=== PATIENT | female | born 2005 | race Caucasian/White ===

== ENCOUNTER 2025-06-22 09:23 | Outpatient (AMB) | payer BC, SELFPAY ==
--- NOTE | 2025-06-22 09:36 | MHC.PC.OV ---
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 Allergies Seasonal Allergies Allergy (Verified 06/22/25 09:39) Congestion Tobacco use date assessed: 06/22/25 Dental Screening Dental Screen Date: 06/22/25 Did you have a dental visit in the last 12 months?: Yes Did you have a dental problem in the last 6 months where you did not have access to dental care?: No Was dental information given to patient?: Patient has dentist HPI HPI Comments History of Present Illness Details This is a 30-year-old female with a past medical history of depression with anxiety presenting to establish care. She transferred from [facility]. Records transfer pending. Anxiety and depression-diagnosed 4 years ago. She was initially seen by a therapist. She tried a couple of medications before starting venlafaxine which was titrated to 75 mg daily. She has been on it for a couple of years. She would like to try decreasing it because she has been doing well for the past year, and she does not want to take more medicine than she needs. Denies hospitalizations for mental health. She is graduating from [employer] in 2 weeks. 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 She is going to move back to [facility] and take some time off before applying to jobs. She has a prescription for hydroxyzine 10 mg at bedtime as needed, but she has not use this for a long time. Eye and dental exams are up-to-date. She will sign a release so we can review her immunization record. Seasonal allergies are treated with Zyrtec as needed. She is on an oral contraceptive pill. 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 Referred for initial exam. Given contact number to call. ROS: Constitutional: No unexplained weight loss, fever, chills, fatigue or night sweats. Eyes: No vision changes, blurry vision, double vision, eye pain, eye redness, eye discharge. ENT: No hearing loss, sneezing, congestion, runny nose or sore throat. Respiratory: No shortness of breath, cough or sputum production. Cardiovascular: No chest pain, chest pressure or chest discomfort. No palpitations or pedal edema. Gastrointestinal: No anorexia, nausea, vomiting or diarrhea. No abdominal pain or blood in stool. Genitourinary: No dysuria, hematuria, urinary frequency. Neurologic: No headache, dizziness, syncope, unilateral weakness, ataxia, numbness or tingling in the extremities. Musculoskeletal: No muscle pain, back pain, joint pain or swelling. Hematologic/Lymphatics: No bleeding or bruising. No painful lymph nodes. Skin: No rash or itching. Endocrine: No cold or heat intolerance. No polyuria or polydipsia. Psychiatric: No depression or anxiety. No SI/HI. Physical exam: Constitutional: Alert, in no distress. Head: Normocephalic. Eyes: Pupils are equal, round and reactive to light. Extraocular muscles intact. Ear, Nose and Throat: Canals clear. TMs normal. Normal nasal mucosa. No nasal discharge. No oral lesions. Neck: Supple, Full range of motion. No lymphadenopathy. No palpable thyroid masses. Respiratory: Clear to auscultation. Cardiovascular: S1 S2 regular. No murmurs Gastrointestinal: Abdomen soft, non-tender, non-distended. Normal bowel sounds. No palpable masses. Neurologic: No focal neurological deficits. Symmetric patellar reflexes. Moves all extremities spontaneously. Sensation intact bilaterally. Skin: No rashes or lesions. Musculoskeletal: No gross deformities. Normal range of motion. Extremities: Warm and well perfused. No clubbing, cyanosis or edema. 3+ peripheral pulses bilaterally. Psychiatric: Normal mood and affect [facility] Medical History (Updated 06/22/25 @ 10:01 by SAMIA Bryan) Routine physical examination Screening for cardiovascular condition Depression Anxiety Family History (Updated 06/22/25 @ 10:06 by SAMIA Bryan) Mother Hypertension FHx: mental illness Anxiety Depression Father Hyperlipemia Maternal Grandmother Lung cancer Alcohol abuse Paternal Grandmother Breast cancer, Onset Age: 70 Paternal Grandfather Substance abuse Social History (Updated 06/22/25 @ 09:45 by Oralia Zimmer MA) Housing: House Housing Other:: [place] Alcohol intake: current Patient Tobacco Use Status: Never used Tobacco e-Cigarette/Vaping Use: Never Used Second Hand Smoke Exposure: No Use of substances other than those prescribed or required for medical reasons: No service: No Current occupational status: employed and student Current occupation: [employer]. Current occupational exposures/hazards: No Cognitive needs: No Hearing needs: No Vision needs: No Questionnaire PHQ-9 Over the last 2 weeks, how often have you been bothered by any of the following problems? 1. Little interest or pleasure in doing things: not at all 2. Feeling down, depressed, or hopeless: not at all 3. Trouble falling or staying asleep, or sleeping too much: not at all 4. Feeling tired or having little energy: not at all 5. Poor appetite or overeating: not at all 6. Feeling bad about yourself - or that you are a failure or have let yourself or your family down: not at all 7. Trouble concentrating on things, such as reading the newspaper or watching television: not at all 8. Moving or speaking so slowly that other people could have noticed. Or the opposite - being so fidgety or restless that you have been moving around a lot more than usual: not at all 9. Thoughts that you would be better off or of hurting yourself in some way: not at all Total score: 0 Depression Screening Interpretation: Negative Depression Screening Done: Yes 77256 - PHQ-9 Billing: Yes Source: Developed by Drs. Isaias Craven, Donya Tilley, Yong Campbell and colleagues, with an educational erika from [employer]. Thrive Questionnaire Date Thrive assessed: 06/22/25 I am a: Patient What is your living situation today?: I have a steady place to live Within the past 12 months, did the food you bought not last and you didn't have the money to get more?: Never true Within the past 12 months, did you worry whether your food would run out before you got money to buy more?: Never true Do you have trouble paying for medicines?: No Do you have trouble getting transportation to medical appointments?: No Do you have trouble paying your heating and electricity bill?: No Do you have trouble taking care of your child, family member or friend?: No Do you have trouble with day-to-day activities such as bathing, preparing meals, shopping, managing finances, etc.?: No Are you currently unemployed and looking for a job?: No Are you interested in more education?: No Please select the resources that you would like help with: None Currently or been in a relationship where the following occur: No concerns reported THRIVE Score: 0 AUDIT C Alcohol Use Questionnaire (AUDIT-C) 1. How often do you have a drink containing alcohol?: 2-4 times a month 2. How many drinks containing alcohol do you have on a typical day when you are drinking?: 3 or 4 3. How often do you have six or more drinks on one occasion?: Monthly Total Score: 5 NAHUN-7 AMB Questionnaire NAHUN-7 Date NAHUN - 7 assessed: 06/22/25 Feeling nervous, anxious, or on edge: 0 = Not at all Not being able to stop or control worryin = Not at all Worrying too much about different things: 0 = Not at all Trouble relaxin = Not at all Being so restless that it is hard to sit still: 0 = Not at all Becoming easily annoyed or irritable: 0 = Not at all Feeling afraid as if something awful might happen: 0 = Not at all Total NAHUN-7 score (0-4 normal; 5-9 mild; 10-14 moderate; 15-21 severe): 0 Source: Developed by Drs. Isaias Craven, Donya Tilley, Yong Campbell and colleagues, with an educational erika from [employer]. NAHUN-7 Assessment Billing NAHUN-7 Assessment Tool: NAHUN-7 Assessment 39286 Physical exam (Primary Care) Vital Signs: Last Vital Signs Temp 97.8 F 06/22/25 09:46 Pulse 75 06/22/25 09:46 BP 116/72 06/22/25 09:46 Pulse Ox 99 06/22/25 09:46 Oxygen Delivery Method Room Air 06/22/25 09:46 BMI result Body Mass Index 27.3 Tobacco/Smoking Status: Tobacco use Status Tobacco use date assessed 06/22/25 06/22/25 09:50 Patient Tobacco Use Status Never used Tobacco 06/22/25 09:50 e-Cigarette/Vaping Use Never Used 06/22/25 09:50 PHQ-9: PHQ-9 Score PHQ-9: Total score 0 06/22/25 09:54 Depression Screening Interpretation: Negative Thrive Assessment: Date of Thrive Assessment Date Thrive assessed 06/22/25 06/22/25 09:38 Currently or been in a relationship where the following occur: No concerns reported Coding Level of Care Code New Pt Level 3 (75978) New Pt Prev Care 18-39yr(02541 Diagnoses Routine physical examination Z00.00 Anxiety F41.9 Depression F32.A Screening for cardiovascular condition Z13.6 Additional Codes NAHUN-7 Assessment Billing - NAHUN-7 Assessment Tool: NAHUN-7 Assessment 70593 ([id number]) PHQ-9 - 37641 - PHQ-9 Billing: Yes ([id number]) Assessment & Plan Assessment & Plan (1) Routine physical examination: Code(s): Z00.00 - Encounter for general adult medical examination without abnormal findings Category: Medical (2) Anxiety: Code(s): F41.9 - Anxiety disorder, unspecified Category: Medical (3) Depression: Code(s): F32.A - Depression, unspecified Category: Medical (4) Screening for cardiovascular condition: Code(s): Z13.6 - Encounter for screening for cardiovascular disorders Category: Medical Plan Patient is seen today for a routine physical. As part of this visit we reviewed the following issues, which are considered and essential part of preventative health in this age group: - Breast Cancer screening - Annual Car Wash Supervisor exam - Screening for colon cancer - Cholesterol screening - Osteoporosis prevention including calcium/vitamin D intake, weight bearing exercise & smoking cessation - Nutritional and exercise counseling - Counseling of injury prevention including fire prevention, smoke alarms and seat belt usage - Screening for depression - Prevention of and/or testing for infectious diseases - agreeable to screen for gonorrhea and chlamydia by urine. Declined screening for syphilis, HIV and hepatitis-C. - Education about skin cancer - Recommendations about immunizations - Recommendation of an eye exam - Screening for substance abuse The patient will alternate venlafaxine 37.5 mg and 75 mg daily for the next 2 weeks. She will then decrease to 37.5 mg daily. She will monitor for recurrent anxiety and depression symptoms. She will schedule a follow up with me in 6 weeks for reassessment. Orders: Orders Lipid Panel Today F32.A - Depression, unspecified, F41.9 - Anxiety disorder, unspecified, Z00.00 - Encounter for general adult medical examination without abnormal findings, Z13.6 - Encounter for screening for cardiovascular disorders Comprehensive Met. Panel Today F32.A - Depression, unspecified, F41.9 - Anxiety disorder, unspecified, Z00.00 - Encounter for general adult medical examination without abnormal findings, Z13.6 - Encounter for screening for cardiovascular disorders TSH reflex Free T4 Today F32.A - Depression, unspecified, F41.9 - Anxiety disorder, unspecified, Z00.00 - Encounter for general adult medical examination without abnormal findings, Z13.6 - Encounter for screening for cardiovascular disorders Complete Blood Count no Diff Today F32.A - Depression, unspecified, F41.9 - Anxiety disorder, unspecified, Z00.00 - Encounter for general adult medical examination without abnormal findings, Z13.6 - Encounter for screening for cardiovascular disorders CT NG by PCR Urine Today F32.A - Depression, unspecified, F41.9 - Anxiety disorder, unspecified, Z00.00 - Encounter for general adult medical examination without abnormal findings, Z13.6 - Encounter for screening for cardiovascular disorders, Z20.2 - Contact with and (suspected) exposure to infections with a predominantly sexual mode of transmission Referrals TOOL PUSHER Referral Z01.419 - Encounter for gynecological examination (general) (routine) without abnormal findings Medications: New venlafaxine ER 37.5 mg PO DAILY 90 caps 0RF
[2025-06-22 09:46] VITALS: BP 116/72; PULSE 75; TEMP 36.6; O2SAT 99; BMI 27.3
--- OUTSIDE RECORDS SUMMARY | 2025-06-22 10:23 | XMS_ITS ---
Author Name [facility] Organization Unknown History of Medication Use Medication Directions Dispensed Refills Start Date End Date Stat us venlafaxine (EFFEXOR-XR) 75 MG 24 hr capsule Take 1 capsule (75 mg total) by mouth daily 04/07/2024 11/28/2024 active hydrOXYzine (ATARAX) 25 MG tablet Take 1 tablet (25 mg total) by mouth 05/28/2023 active Problems Problem Status Onset Date Problem Type Date of Resolution Source Encounter for female control active [facility]Act [facility] Need for vaccination active EncounterDiagnosisAct [facility] Depression, unspecified depression type active EncounterDiagnosisAct [facility]_ [facility] Immunizations Vaccine Date Source Lot Number Status Fluzone Trivalent Prefilled Syringe (18+ months) 11/28/2024 [facility] [id number] completed Encounters Encounter Type Encounter Reason Primary Diagnosis Location Date Ambulatory Flu Vaccine Encounter for in itial prescription of contraceptives, unspecified [facility] 11/28/2024 Care Team Organization Name Specialty Phone Email Start Date End Da te [facility] NO PCP Primary Care 11/28
--- OUTSIDE RECORDS SUMMARY | 2025-06-22 10:23 | XMS_ITS | Encounter Summary ---
Author Organization [facility] Address [address] [place] [address] Phone Care Team Providers Care Jewel Hole Finish Opener Name Role Phone Eunice Olson MD Primary Care Provider [phone] Encounter Details Date Type Department Care Team (Late st Contact Info) Description 04/14/2018 [facility] [id number] [place] [address] Court Stone MD Social History Tobacco Use Types Packs/Day Years Used Date Smoking Tobacco: Never Assessed Comments Unknown Sex and Gender Information Value Date Recorded Sex Assigned at Not on file Legal Sex Female 6:11 PM EDT Gender Identity Not on file Sexual Orientation Straight 10/10/2019 11 :31 AM EST documented as of this encounter Plan of Treatment Not on file documented as of this encounter Visit Diagnoses Not on filedocumented in this encounter Care Teams Jewel Hole Finish Opener Relationship Specialty Start Date End Date Eunice Olson MD [address] [place] [address] PCP - General Pediatrics 03/05/23 10/14/24 documented as of this encounter
== END 2025-06-22 10:14 | disposition home or self-care (01) ==
LOC: HO.HMCFM 09:33
PROVIDERS: PCP Physician Assistant Medical; Visit Provider Physician Assistant Medical
DX: Z00.00 Encounter for general adult medical examination without abnormal findings (principal); F41.9 Anxiety disorder, unspecified; F32.A Depression, unspecified; Z13.6 Encounter for screening for cardiovascular disorders

== ENCOUNTER → 2025-06-22 09:23 | Outpatient (BNVA) | payer BC, SELFPAY | PROVIDERS: PCP Physician Assistant Medical; Visit Provider Physician Assistant Medical | DX: Z00.00 Encounter for general adult medical examination without abnormal findings (principal); F41.9 Anxiety disorder, unspecified; F32.A Depression, unspecified | CPT/HCPCS: 96127 ==

== ENCOUNTER 2025-06-22 10:29 | Outpatient (REF) | payer BC, SELFPAY ==
[2025-06-22 15:02] LABS: Hematocrit 39.9 % (37.0-47.0); Hemoglobin 13.5 g/dl (12.0-16.0); Mean Corpuscular HGB Conc 33.8 g/dl (31.0-35.0); Mean Corpuscular Hemoglobin 31.8 pg (27.0-33.0); Mean Corpuscular Volume 93.9 fL (80.0-98.0); NRBC Abs Auto 0.000 X10*3/uL (0.0-0.012); NRBC Pct Auto 0.0 /100WBC (0.0-0.2); Platelet Count 281 X10*3/uL (160-400); Red Blood Count 4.25 X10*6/uL (4.20-5.50); White Blood Count 9.5 X10*3/uL (4.8-10.8)
[2025-06-22 15:38] LABS: Alanine Aminotransferase 23 U/L (0-31); Albumin Level 4.5 g/dL (3.5-5.0); Alkaline Phosphatase 69 U/L (39-117); Anion Gap 14 (12-20); Aspartate Amino Transferase 27 U/L (5-31); Blood Urea Nitrogen 11 mg/dL (9-16); Calcium 9.5 mg/dL (8.4-10.2); Carbon Dioxide 26 mmol/L (22-29); Chloride 105 mmol/L (96-108); Cholesterol 230 mg/dL (<200); Estimated Glomerular Filt Rate > 60; HDL Cholesterol 101 mg/dL (>40); Potassium 4.2 mmol/L (3.3-5.1); Sodium 141 mmol/L (135-145); Total Protein 6.9 g/dL (6.5-8.0); Triglycerides 68 mg/dL (<150)
[2025-06-22 17:01] LABS: CT PCR Urine DETECTED (Not Detect.); NG PCR Urine NOT DETECTED (Not Detect.)
== END 2025-06-22 10:30 | disposition home or self-care (01) ==
LOC: HO.WFDLDS 10:29
PROVIDERS: Visit Provider Physician Assistant Medical
DX: Z00.00 Encounter for general adult medical examination without abnormal findings (principal); Z13.6 Encounter for screening for cardiovascular disorders; F41.9 Anxiety disorder, unspecified; F32.A Depression, unspecified; Z20.2 Contact with and (suspected) exposure to infections with a predominantly sexual mode of transmission
CPT/HCPCS: 36415; 80053; 80061; 84443; 85027; 87491; 87591

== ENCOUNTER 2025-08-27 10:03 | Outpatient (REF) | payer BC, SELFPAY ==
[2025-08-27 14:40] LABS: Hematocrit 37.9 % (37.0-47.0); Hemoglobin 12.6 g/dl (12.0-16.0); Mean Corpuscular HGB Conc 33.2 g/dl (31.0-35.0); Mean Corpuscular Hemoglobin 31.1 pg (27.0-33.0); Mean Corpuscular Volume 93.6 fL (80.0-98.0); NRBC Abs Auto 0.000 X10*3/uL (0.0-0.012); NRBC Pct Auto 0.0 /100WBC (0.0-0.2); Platelet Count 267 X10*3/uL (160-400); Red Blood Count 4.05 X10*6/uL (4.20-5.50); White Blood Count 6.3 X10*3/uL (4.8-10.8)
[2025-08-27 15:22] LABS: Iron 73 mcg/dL (30-160); Percent Iron Saturation 20 % (15-50); Total Iron Binding Capacity 357 mcg/dL (228-428); Unsaturated Iron Binding 284 ug/dL
[2025-08-27 15:24] LABS: Ferritin 52 ng/mL (10-122)
[2025-08-27 15:42] LABS: Folate 10.3 ng/mL (> or = 4.0); Vitamin B12 409 pg/mL (200-900)
[2025-08-27 16:47] LABS: CT PCR Urine NOT DETECTED (Not Detect.); NG PCR Urine NOT DETECTED (Not Detect.)
[2025-09-01 15:23] LABS: Vitamin D 25-OH, D2 <4 ng/mL; Vitamin D 25-OH, D3 40 ng/mL; Vitamin D 25-OH, Total 40 ng/mL (30-100)
== END 2025-08-27 10:04 | disposition home or self-care (01) ==
LOC: HO.WFDLDS 10:03
PROVIDERS: PCP Physician Assistant Medical; Visit Provider Physician Assistant Medical
DX: F41.9 Anxiety disorder, unspecified (principal); F32.89 Other specified depressive episodes; F32.A Depression, unspecified; G25.81 Restless legs syndrome; Z20.2 Contact with and (suspected) exposure to infections with a predominantly sexual mode of transmission
CPT/HCPCS: 82306; 82607; 82728; 82746; 83540; 84443; 85027; 87491; 87591

== ENCOUNTER 2025-08-27 10:03 | Outpatient (AMB) | payer BC, SELFPAY ==
--- NOTE | 2025-08-27 10:13 | A.OFFPC_ITS ---
Vital Signs 08/27/25 10:16 Height 5 ft 3 in Weight 160 lb 6 oz BMI 28.4 BP 108/70 Blood Pressure Location Lt brachial Position Sitting Pulse 67 Pulse Source Pulse Oximeter Temp 98 F Temp Source Temporal Artery Scan Pulse Oximetry (%) 98 Oxygen Delivery Method Room Air Intake Visit Reasons: med check. Intake Note: Lucille presents in the office today for a medication check in. Allergies Seasonal Allergies Allergy (Verified 08/27/25 10:13) Congestion Tobacco use date assessed: 08/27/25 Dental Screening Dental Screen Date: 08/27/25 Did you have a dental visit in the last 12 months?: Yes Did you have a dental problem in the last 6 months where you did not have access to dental care?: No Was dental information given to patient?: Patient has dentist HPI HPI Comments History of Present Illness Details This is a 30-year-old female with a past medical history of depression with anxiety presenting for follow up. Anxiety and depression-diagnosed 4 years ago. She was initially seen by a therapist. She tried a couple of medications before starting venlafaxine which was titrated to 75 mg daily. She has been tapering down as instructed, and she recently decreased due 37.5 mg daily. She endorses some restless leg symptoms at night, and she is unsure if this is related to decreasing the dose. Otherwise she does not see much of a difference in terms of her mental health. She is currently looking for a job because she graduated. 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 She has a prescription for hydroxyzine 10 mg at bedtime as needed, but she has not use this for a long time. She took the course of doxycycline to treat for the asymptomatic chlamydia infection detected on routine labs. ROS: Constitutional: No unexplained weight loss, fever, chills, fatigue or night swea ts. Genitourinary: No dysuria, hematuria, urinary frequency. Denies vaginal discharge. Neurologic: No headache, dizziness, syncopea. Psychiatric: No SI or HI Physical exam: Constitutional: Alert, in no distress. Neck: Supple, Full range of motion. No lymphadenopathy. No palpable thyroid masses. Respiratory: Clear to auscultation. Cardiovascular: S1 S2 regular. Psychiatric: Normal mood and affect [facility] Medical History (Updated 08/27/25 @ 11:29 by SAMIA Bryan) RLS (restless legs syndrome) Fibula fracture Tibia fracture Routine physical examination Screening for cardiovascular condition Depression Anxiety Surgical History (Updated 06/24/25 @ 15:01 by Oralia Zimmer MA) History of fasciotomy Family History Mother Hypertension FHx: mental illness Anxiety Depression Father Hyperlipemia Maternal Grandmother Lung cancer Alcohol abuse Paternal Grandmother Breast cancer, Onset Age: 70 Paternal Grandfather Substance abuse Social History (Updated 08/27/25 @ 10:16 by Oralia Zimmer CMA) Housing: House Housing Other:: [place] Alcohol intake: current Patient Tobacco Use Status: Never used Tobacco e-Cigarette/Vaping Use: Never Used Second Hand Smoke Exposure: No service: No Current occupational status: employed and student Current occupation: [employer] at [employer]. Current occupational exposures/hazards: No Cognitive needs: No Hearing needs: No Vision needs: No Questionnaire Thrive Questionnaire Date Thrive assessed: 06/22/25 I am a: Patient What is your living situation today?: I have a steady place to live Within the past 12 months, did the food you bought not last and you didn't have the money to get more?: Never true Within the past 12 months, did you worry whether your food would run out before you got money to buy more?: Never true Do you have trouble paying for medicines?: No Do you have trouble getting transportation to medical appointments?: No Do you have trouble paying your heating and electricity bill?: No Do you have trouble taking care of your child, family member or friend?: No Do you have trouble with day-to-day activities such as bathing, preparing meals, shopping, managing finances, etc.?: No Are you currently unemployed and looking for a job?: No Are you interested in more education?: No Please select the resources that you would like help with: None Currently or been in a relationship where the following occur: No concerns reported THRIVE Score: 0 NAHUN-7 AMB Questionnaire NAHUN-7 Date NAHUN - 7 assessed: 06/22/25 Source: Developed by Drs. Isaias Craven, Donya Tilley, Yong Campbell and colleagues, with an educational erika from [employer]. Physical exam (Primary Care) Vital Signs: Last Vital Signs Temp 98 F 08/27/25 10:16 Pulse 67 08/27/25 10:16 BP 108/70 08/27/25 10:16 Pulse Ox 98 08/27/25 10:16 Oxygen Delivery Method Room Air 08/27/25 10:16 BMI result Body Mass Index 28.4 Tobacco/Smoking Status: Tobacco use Status Tobacco use date assessed 08/27/25 08/27/25 10:19 Patient Tobacco Use Status Never used Tobacco 08/27/25 10:19 e-Cigarette/Vaping Use Never Used 08/27/25 10:19 Thrive Assessment: Date of Thrive Assessment Date Thrive assessed 06/22/25 08/27/25 10:19 Currently or been in a relationship where the following occur: No concerns reported Coding Level of Care Code Est Pt Level 4 (38033) Complex EM visit Add On G2211 Diagnoses Anxiety F41.9 Other depression F32.89 Depression Type: other depression RLS (restless legs syndrome) G25.81 Assessment & Plan Assessment & Plan (1) Anxiety: Code(s): F41.9 - Anxiety disorder, unspecified Category: Medical (2) Depression: Code(s): F32.A - Depression, unspecified Category: Medical Qualifiers: Depression Type: other depression Qualified Code(s): F32.89 - Other specified depressive episodes (3) RLS (restless legs syndrome): Code(s): G25.81 - Restless legs syndrome Category: Medical Plan She will have lab work to look for underlying causes of RLS. This could be related to decreasing her dose of venlafaxine. We will see if it resolves. She will continue the current dose venlafaxine ER set 37.5 mg daily. We elected to reassess this in 2-3 months. She is monitoring for increased depression and anxiety and will contact me if she has any difficulties. She will increase fluids, stretch and exercise and make sure she is getting adequate nutrition. She will message me if RLS symptoms increase. Orders: Orders TSH reflex Free T4 Today F32.A - Depression, unspecified, F41.9 - Anxiety disorder, unspecified, G25.81 - Restless legs syndrome Vitamin D 25-OH (D2 and D3) Today F32.A - Depression, unspecified, F41.9 - Anxiety disorder, unspecified, G25.81 - Restless legs syndrome IRON PROFILE Today F32.A - Depression, unspecified, F41.9 - Anxiety disorder, unspecified, G25.81 - Restless legs syndrome Ferritin Today F32.A - Depression, unspecified, F41.9 - Anxiety disorder, unspecified, G25.81 - Restless legs syndrome Vitamin B12 and Folate Today F32.A - Depression, unspecified, F41.9 - Anxiety disorder, unspecified, G25.81 - Restless legs syndrome Complete Blood Count no Diff Today F32.A - Depression, unspecified, F41.9 - Anxiety disorder, unspecified, G25.81 - Restless legs syndrome CT NG by PCR Urine Today Z20.2 - Contact with and (suspected) exposure to infections with a predominantly sexual mode of transmission
[2025-08-27 10:16] VITALS: BP 108/70; PULSE 67; TEMP 36.6; O2SAT 98; BMI 28.4
--- OUTSIDE RECORDS SUMMARY | 2025-08-27 11:26 | XMS_ITS | Encounter Summary ---
Author Organization [facility] Address [address] [place] [address] Phone Care Team Providers Care Insert Molding Operator Name Role Phone Eunice Olson MD Primary Care Provider [phone] Encounter Details Date Type Department Care Team (Late st Contact Info) Description 04/14/2018 [facility]counter [facility] [id number] [place] [address] [address] Stone MD Social History Tobacco Use [...] on filedocumented in this encounter Care Teams Insert Molding Operator Relationship Specialty Start Date End Date Eunice Olson MD [address] [place] [address] PCP - General Pediatrics 03/05/23 10/14/24 documented as of this encounter
--- OUTSIDE RECORDS SUMMARY | 2025-08-27 11:26 | XMS_ITS | Encounter Summary ---
Author Organization [facility] Address [address] [place] [address] Phone Care Team Providers Care Soubrette Name Role Phone Eunice Olson MD Primary Care Provider [phone] Encounter Details Date Type Department Care Team (Late st Contact Info) Description 12/17/[address] [facility] Family Medicine [address] [place] [address] Family Medicine, Physician [address] [place] [address] Social History Tobacco Use Types Packs/Day Years [...] on filedocumented in this encounter Care Teams Soubrette Relationship Specialty Start Date End Date Eunice Olson MD [address] [place] [address] PCP - General Pediatrics 03/05/23 10/14/24 documented as of this encounter
--- OUTSIDE RECORDS SUMMARY | 2025-08-27 11:26 | XMS_ITS | Encounter Summary ---
Author Organization [facility] Address [address] [place] [address] Phone Care Team Providers Care Public Health Doctor Name Role Phone Eunice Olson MD Primary Care Provider [phone] Reason for Visit * Reason Comments Med Refill Encounter Details Date Type Department Care Team (Late st Contact Info) Description 03/29/2021 [facility]ill [facility] [address] [place] [address] Sana Angulo NP [address] [place] [address] Depression with anxiety Social History Tobacco Use Types Packs/Day Years Used Date Smoking Tobacco: Never Smokeless Tobacco: Never Alcohol Use Standard Drinks/Week Comments No 0 (1 standard drink = 0.6 oz pur e alcohol) Hunger/Food Answer Date Recorded In the last 12 months, did y ou or your family ever eat less than you felt you should because there wasn't enough money for food? No 11/01/2020 Stable Housing Answer Date Recorded Are you worried that in the next 2 months you may not have stable housing? No 11/01/2020 Transportation Concerns Answer Date Rec orded In the last 12 months, have you or your family ever had to go without healthcare because you didn't have a way to get there? No 11/01/2020 Hazards in Home Answer Date Recorded Think about the place you li ve. Do you have problems with any of the following? Pests (mice or roaches), mold, no/not working smoke detectors, water leaks, no window guards. No 2019 Financing Utilities Answer Date Recorde d In the last 12 months, has t he electric, gas, oil, or water company threatened to shut off your services in your home? No 11/01/2020 Safety at Home Answer Date Recorded Are you or your family worried about feeling saf e in your home? No 11/01/2020 Outside Support Answer Date Recorded Do you feel that you need mo re support from other people or programs to help you care for yourself or your family? No 11/01/2020 Understanding Health Concerns Answer Da te Recorded Do you need help understandi ng your or your child's healthcare needs (diagnosis, medications, plan, etc.)? No 11/01/2020 Financing Health Concerns Answer Date R ecorded In the last 12 months, was t here a time when your child needed to see a doctor or get medications or supplies but could not because of cost? No 11/01/2020 Missing School or Work Answer Date Alberto rded Did you or your child miss s chool or work because of a health problem that could have been avoided? No 11/01/2020 Comments No Sex and Gender Information Value Date Recorded Sex Assigned at Not on file Legal Sex Female 6:11 PM EDT Gender Identity Not on file Sexual Orientation Straight 10/10/2019 11 :31 AM EST documented as of this encounter Miscellaneous Notes * Telephone Encounter - Sana Angulo NP - 03/29/2021 4:07 PM EDT Rx reviewed, approved, and sent to pharmacy. * Telephone Encounter - Melissa Carney MA - 03/29/2021 3:41 PM EDT Refill request for Fluoxetine 20mg Last [facility] was 11/01/20 Last med check was 12/06/20 Dose increased 12/27/20, see patient message Last refill 02/28/21 Med check due 02/13 Call to mom, sent to appt line to book Please review for Nika documented in this encounter Plan of Treatment Not on file documented as of this encounter Visit Diagnoses Diagnosis Depression with anxiety Dysthymic disorder documented in this encounter Care Teams Public Health Doctor Relationship Specialty Start Date End Date Eunice Olson MD [address] [facility] [place] [address] PCP - General Pediatrics 03/05/23 10/14/24 documented as of this encounter
--- OUTSIDE RECORDS SUMMARY | 2025-08-27 11:26 | XMS_ITS | Encounter Summary ---
Author Organization [facility] Address [address] [place] [address] Phone Care Team Providers Care Fuel Handler Name Role Phone Unavailable Primary Care Provider Unavailabl e Reason for Visit * Reason Onset Date Comments release of records 07/10/2025 Encounter Details Date Type Department Care Team ([facility] st Contact Info) Description 07/10/2025 [facility]phone [facility] [address] [address] [address] [address] release of records Social History Tobacco Use Types Packs/Day Years Used Date Smoking Tobacco: Some Days Cigarettes Smokeless Tobacco: Never Alcohol Use Standard Drinks/Week Comments Yes 1 (1 standard drink = 0.6 oz pure alcohol) at home with extended family. Not drinking/driving Hunger/Food Answer Date Recorded In the last 12 months, did y ou or your family ever eat less than you felt you should because there wasn't enough money for food? No 05/28/2023 Stable Housing Answer Date Recorded Are you worried that in the next 2 months you may not have stable housing? No 05/28/2023 Transportation Concerns Answer Date Rec orded In the last 12 months, have you or your family ever had to go without healthcare because you didn't have a way to get there? No 05/28/2023 Hazards in Home Answer Date Recorded Think about the place you li ve. Do you have problems with any of the following? Pests (mice or roaches), mold, no/not working smoke detectors, water leaks, no window guards. No 2022 Financing Utilities Answer Date Recorde d In the last 12 months, has t he electric, gas, oil, or water company threatened to shut off your services in your home? No 05/28/2023 Safety at Home Answer Date Recorded Are you or your family worried about feeling saf e in your home? No 05/28/2023 Outside Support Answer Date Recorded Do you feel that you need mo re support from other people or programs to help you care for yourself or your family? No 05/28/2023 Understanding Health Concerns Answer Da te Recorded Do you need help understandi ng your or your child's healthcare needs (diagnosis, medications, plan, etc.)? No 05/28/2023 Financing Health Concerns Answer Date R ecorded In the last 12 months, was t here a time when your child needed to see a doctor or get medications or supplies but could not because of cost? No 05/28/2023 Missing School or Work Answer Date Alberto rded Did you or your child miss s chool or work because of a health problem that could have been avoided? No 05/28/2023 Comments No Sex and Gender Information Value Date Recorded Sex Assigned at Not on file Legal Sex Female 6:11 PM EDT Gender Identity Not on file Sexual Orientation Straight 10/10/2019 11 :31 AM EST documented as of this encounter Miscellaneous Notes * Telephone Encounter - Jimmy Zimmerman MA - 07/10/2025 1:09 PM EDT Release of records received to be sent out to [facility] [address] [place] [address] Records printed and mailed. Release scanned into media. documented in this encounter Plan of Treatment Not on file documented as of this encounter Visit Diagnoses Not on filedocumented in this encounter
--- OUTSIDE RECORDS SUMMARY | 2025-08-27 11:26 | XMS_ITS | Clinical Summary ---
Author Organization [facility] Address [address] [place] [address] Phone Care Team Providers Care Car Escort Name Role Phone Unavailable Primary Care Provider Unavailabl e Allergies No known active allergies Medications hydrOXYzine 25 MG tabletIndicatio ns:Depression with anxiety Take 1 tablet (25 mg total) by mouth nightly as needed for anxiety. 30 tablet 05/28/2023 Active levonorgestrel- ethinyl estradiol (Vienva) 0.1-20 MG-MCG per tabletIndicatio ns:Acne vulgaris Take 1 tablet by mouth every morning. 84 tablet 1 03/05/2024 Active venlafaxine XR 75 MG 24 hr capsuleIndicati ons:Depression with anxiety Take 1 capsule (75 mg total) by mouth daily. 90 capsule 1 04/07/2024 Active Active Problems Problem Noted Date Diagnosed Date Elevated cholesterol 09/06/2022 Overview (09/06/2022): Per Ahsan, checked by derm while on accutane. Assessment & Plan (09/06/2022 1:27 PM EDT): checked by derm while on accutane, ahsan reports that it was elevated but not sure how high. Discussed nutrition, increasing fiber. Strive for some exercise, adequate hydration. Can recheck at next year's [facility] unless screened again by derm. Depression with anxiety 11/01/2020 Overview (05/28/2023): Fluoxetine. No effect Assessment & Plan (06/21/2023 4:46 PM EDT): Some improvement with effexor XR 37.5 mg. Will increase to 75 mg and recheck 1 month Assessment & Plan (09/06/2022 1:26 PM EDT): Ahsan is responding nicely to the increased Lexapro. No changes made to medication at this time. Will continue to stay at 20mg. Plan for a med check when she returns in April for her [facility], but can be done sooner if there are any concerns. Assessment & Plan (06/21/2022 1:44 PM EDT): Minor improvements with the switch to lexapro. Will further titrate to max dose at 20mg. Just got a refill of 10mg tablets so will have her take 15mg (1.5 tablets) for the next 2-3 weeks until that prescription is done then she will call for a refill and I will send in a 20mg tablet prescription for her to take once daily. Plan for a med check, can be virtual if she is back in school in [place], in 2 months-sooner if any concerns. Continue with regular therapy sessions. Assessment & Plan (04/28/2022 4:50 PM EDT): Symptoms worsening since being home and having more free time. Reports that in general she feels the prozac was only subpar. Per up to date can do a direct switch between SSRIs. She has been on the prozac for a year and a half so will taper it down over the next 2 weeks and then start lexapro. Will do 20mg for the next week, and then 10mg the following week. After that time she will start lexapro at 5mg for one week and then increase to 10mg. I would like to see her back in the office mid to end of May for a med check, sooner if there are any concerns. Assessment & Plan (01/20/2022 4:26 PM EST): Overall has been doing well on the Prozac, but feels an increase could be beneficial. Will increase to 40mg-will send over new rx. Proud of her efforts away at school reaching out to her therapist, joining the gym, eating well. Denies SI. Plan to follow up in a few months at her next scheduled [facility], sooner if any concerns. Assessment & Plan (07/20/2021 4:37 PM EDT): Will increase prozac to 30mg (1.5 tablets of the 20mg prozac). She will try this for 3 weeks and if she still feels that it is not beneficial enough she can increase to 40mg (2 tablets). We will also add in hydroxyzine to help with panic attacks and sleep. Reviewed how to take it and side effects. Proud of her that she has taken the initiative to pull back from a stressful situation and reach out to her therapists for help. We will follow up in the office in October on winter, sooner as a virtual visit if she needs one. Assessment & Plan (04/06/2021 2:16 PM EDT): Increase to 20mg has been going better. Less frequent panic attacks now and mood more stable. She has also just started up therapy and so far going well. Plan to stay at prozac 20mg for now and see how things go with therapy and school getting out soon. She knows she can reach out at any time if she feels she needs an increase and would plan to go up to 30mg if needed. Plan for next med check in 6 months when she is home on winter, sooner if needed. No refill needed today but ok to fill x6 months. Assessment & Plan (12/06/2020 10:11 AM EST): Improvement in PHQ and NAHUN scores since last visit. I am very happy to hear the progress Ahsan has been making. At this time she feels she would like to stay the 10mg for a bit longer and will call me if she feels an increase is needed. Continue with speaking to friends, exercise, eating healthy, and proper sleep as this has been having a great positive affect on her. Will plan to follow up in 3 months for a med check, sooner if she has any concerns. No refill needed today. Assessment & Plan (11/17/2020 12:03 PM EST): PHQ and NAHUN scores have increased quite a bit since last visit. She has been doing grounding and deep breathing to help with panic attacks but she feels her mood has gone a lot more down hill these past few weeks. She feels this has been ongoing for a lot longer than she initially thought. We discussed SSRI and therapy as management. I strongly encouraged her to reach out to schedule therapy session with Gina Barba. We reviewed how SSRIs work, side effects, safety profile, BBW of SI. We reviewed that they can take at least 6-8 weeks to start noticing therapeutic benefit. I would like to start her at 10mg of Prozac for two weeks and after that time she may increase to 20mg if needed. I would like to see her in the office after 3 weeks for a recheck, sooner if needed. Continue using grounding and breathing exercises. I gave her the number to crisis and explained how it works. Call us, crisis, or go to ER for any unwanted thoughts, SI, self harm. Call for any further questions or concerns. Assessment & Plan (11/01/2020 2:51 PM EST): Reviewed self guided management techniques including grounding, deep breathing exercises, journaling, exercise, yoga, nutrition. Discussed therapy and availability of Gina Barba in our office. If anything worsens, or there is SI to call me and we can discuss medication therapy. Resolved Problems Problem Noted Date Diagnosed Date Resolved Date Acne vulgaris 10/04/2017 05/28/2023 Overview (02/21/2023): 03/20/22: [facility] follow up: will be starting oral isotretinoin, iPlege signed, urine preg neg. Is on OCP 02/15: seen by Dr. Patterson on accutane, should be her last month, on ocp. Urine neg Assessment & Plan (11/01/2020 2:47 PM EST): Continue with topicals Assessment & Plan (10/10/2019 7:55 PM EST): Reviewed skin care for acne prone skin- she is followed by dermatology and using prescribed adapalene, doxycycline and clindamycin-benzoyl peroxide gel Assessment & Plan (10/09/2018 12:02 PM EST): Followed by Dermatology- slowly seeing positive results Body mass index (bmi) pediat lolis, 85th percentile to less than 95th percentile for age 1110/04/2017 10/10/2019 Overview (03/23/2023): Diagnosis load February 2023 Assessment & Plan (10/09/2018 12:03 PM EST): Active in sports all three seasons. Reviewed AAP guidelines for healthy active living. Encounters Date Type Department Care Team Description 07/10/2025 [facility]phone [facility] [address] [address] [place] release of records from Last 3 Months Immunizations Immunization Administration Dates Next Due DTaP 05/07/2008, 4,2003,08/31,2003 H1N1 11/09/2009,10/11/2009 HPV Vaccine 9 Valent 09/16/2015 HPV, Quadrivalent 10/29/2014,08/28/2014 Hep A, ped/adol 10/09/2018,10/03/2017 Hep B, ped/adol 06/17/2004,2003,2003 Hib (PRP-T) 08/08/2004, 3,2003,07/02 IPV 05/07/2008, 4,2003,07/02 Influenza 11/05/2007 Influenza, injectable, quadrivalent 08/27,09/16/2015,12/10/2012,08/22,08/13/2010,12/20/2009,11/04/2008 Influenza, injectable, quadr ivalent, preservative free 04/28/2022,11/01/2020,10/10/2019,10/09,10/03/2017,08/28/2014,07/31/2013 Influenza, injectable, triva lent, preservative free 01/17/2005,09/22/2004 MMR 05/09/2004 MMRV 05/02/2007 Meningococcal B Bexsero 05/28/2023,04/28/2022 Meningococcal Conj (Menactra) MCV4P 10/10/2019,1 Pneumococcal Conjugate 01/17/2004,2002,2003,07/12 Tdap 08/28/2014 Varicella 05/09/2004 Family History Medical History Relation Name Comments No Known Problems Father Mumtaz No Known Problems Father's Sister Other Maternal Grandfather congest ricky heart failure Aortic aneurysm Maternal Grandmother Hypertension Maternal Grandmother Stroke Maternal Grandmother No Known Problems Mother Brittany No Known Problems Paternal Grandfather Breast cancer Paternal Grandmother Diabetes Paternal Grandmother Relation Name Status Comments Brother Armando Alive Father Mumtaz Alive healthy age: 38 Father's Sister Alive healthy Maternal Grandfather congest ricky heart failure diagnosed with HEART DISEASE NOS Maternal Grandmother hyperte nsion, aortic anevrysme, stroke age: 68 diagnosed with Hypertension Mother Brittany Alive healthy age: 37 Paternal Grandfather Alive healthy age: 63 Paternal Grandmother Alive DM type 2 ; breast ca @ 48 age: 60 diagnosed with DMII WO CMP NT ST UNCNTR, MALIGNANT NEOPLASM NOS Social History Tobacco Use Types Packs/Day Years Used Date Smoking Tobacco: Some Days Cigarettes Smokeless Tobacco: Never Tobacco Cessation:Ready to Q uit: Not Asked; Counseling Given: Yes Alcohol Use Standard Drinks/Week Comments Yes 1 [...] Orientation Straight 10/10/2019 11 :31 AM EST Last Filed Vital Signs Vital Sign Reading Time Taken Comments Blood Pressure 114/64 06/21/2023 11:39 AM EDT Pulse - - Temperature 36.7 C (98 F) 06/21/2022 11:25 AM EDT Respiratory Rate - - Oxygen Saturation - - Inhaled Oxygen Concentration - - Weight 68.5 kg (151 lb) 06/21/2023 11:39 AM EDT Height 157.5 cm (5' 2 ) 06/21/2023 11:39 AM EDT Body Mass Index 27.62 06/21/2023 11:39 AM EDT Plan of Treatment Health Maintenance Due Date Last Done Comments DTaP,Tdap,and Td Vaccines (7 - Td or Tdap) 08/28/2024 08/28/2014, 05/07/2008, 08/08/2004, Additional history exists Influenza Vaccines (#1) 2025 04/28/20, 11/01/2020, 10/10/2019, Additional history exists COVID-19 Vaccine ( season) 2025 12/14/2021, 06/12/2021, 05/22/2021 Pneumococcal Vaccine Aged Out 01/17/2004, 2003, 2003, Additional history exists No longer eligible based on patient's age to complete this topic Hepatitis B Vaccines Completed 06/17/2004, 2003, 2003 HIB Vaccines Completed 08/08/2004, 10/26, 2003, Additional history exists MMR Vaccines Completed 05/02/2007, 05/09/2004 Varicella Vaccines Completed 05/02/2007, 05/09/2004 IPV Vaccines Completed 05/07/2008, 01/25, 2003, Additional history exists HPV Vaccines Completed 09/16/2015, 1202/2014, 08/28/2014 Hepatitis A Vaccines Completed 10/09/2018, 10/03/20 17 Meningococcal Vaccine Completed 10/10/2019, 014 Men B Vaccine Completed 05/28/2023, 04/28/2022 Procedures * Due to [place] [employer] law, this organization might not be sharing sensitive test results. Procedure Name Priority Date/Time Associated Diagnosis Comments CHLAMYDIA AND GONORRHEA, AMPLIFIED Routine 05/28/2023 3:15 PM EDT Encounter for screening examination for sexually transmitted disease from Last 3 Months or Most Recently Relevant to Health Maintenance Results * Due to [place] [employer] law, this organization might not be sharing sensitive test results. * (ABNORMAL) Chlamydia and Gonorrhoea, Amplified (05/28/2023 3:15 PM EDT) Chlamydia Trachomatis, DNA Probe POSITIVE(A) (NEG) [facility] Comment: Chlamydia Trachomatis RNA detected in this patient's sample (REFERENCE RANGE/NORMAL VALUE: NOT DETECTED) Result reported to the [facility]. Note: This test uses net maker- mediated amplification method to detect rRNA from C. Trachomatis URINE GC AMP PROBE NEGATIVE (NEG) [facility] Comment: No Neisseria Gonorrhoeae RNA detected in this patient's sample (REFERENCE RANGE/NORMAL VALUE: NOT DETECTED) NOTE: This test uses net maker-mediated amplification method to detect rRNA from N.Gonorrhoeae. A negative result does not preclude infection. In the case of a negative urine result, testing of an endocervical(female) or urethral (male) specimen is recommended if there is high clinical suspicion of infection. Due to very high sensitivity of Nucleic Acid Amplification Test, false positive results may occur. Therefore, specimen handling is extremely important. In patients in whom the disease is unlikely, additional sample for testing should be considered after an initial positive result. The performance characteristics of this test have not been evaluated in children. The Aptima Combo2 assay is not intended for the evaluation of suspected sexual abuse or for other medico-legal indications. The ordering provider should assess if the patient had consensual sex without risk of sexual abuse. Consult the [facility] if needed. Contact phone number . Therapeutic failure or success cannot be determined with the Aptima Combo2 assay since nucleic acid may persist following appropriate antimicrobial therapy. The Centers for Disease Control and Prevention (CDC) recommends confirmatory retesting using culture or a different nucleic acid amplification test when positive results occur, if indicated. Testing performed or reported by [facility], a Service of [facility], [address] [place] [address] [place] [address] Edwin Kyle MD, Car Escort [facility]# [id number] Urine (Urine) 05/28/2023 3:1 5 PM EDT 05/28/2023 7:29 PM EDT us Eunice Olson MD LAB MICROBIOLOGY - GENERAL ORDER SAMANTHA Final Result [facility] from Last 3 Months or Most Recently Relevant to Health Maintenance Insurance [facility] PPO
--- OUTSIDE RECORDS SUMMARY | 2025-08-27 11:26 | XMS_ITS | Encounter Summary ---
Author Organization [facility] Address [address] [place] [address] Phone Care Team Providers Care Commodity Merchant Name Role Phone Euncie Olson MD Primary Care Provider [phone] Reason for Visit * Reason Onset Date Comments Med Refill 08/08/2022 Encounter Details Date Type Department Care Team (Late st Contact Info) Description 08/08/2022 [facility]ill [facility] [address] [address] [address] Stone MD Depression with anxiety Social History Tobacco Use Types Packs/Day Years Used Date Smoking Tobacco: Never Smokeless Tobacco: Never Alcohol Use Standard Drinks/Week Comments Not Currently 0 (1 standard drink = 0.6 oz pur e alcohol) Hunger/Food Answer Date Recorded In the last 12 months, did y ou or your family ever eat less than you felt you should because there wasn't enough money for food? No 04/28/2022 Stable Housing Answer Date Recorded Are you worried that in the next 2 months you may not have stable housing? No 04/28/2022 Transportation Concerns Answer Date Rec orded In the last 12 months, have you or your family ever had to go without healthcare because you didn't have a way to get there? No 04/28/2022 Hazards in Home Answer Date Recorded Think about the place you li ve. Do you have problems with any of the following? Pests (mice or roaches), mold, no/not working smoke detectors, water leaks, no window guards. No 2021 Financing Utilities Answer Date Recorde d In the last 12 months, has t he electric, gas, oil, or water company threatened to shut off your services in your home? No 04/28/2022 Safety at Home Answer Date Recorded Are you or your family worried about feeling saf e in your home? No 04/28/2022 Outside Support Answer Date Recorded Do you feel that you need mo re support from other people or programs to help you care for yourself or your family? No 04/28/2022 Understanding Health Concerns Answer Da te Recorded Do you need help understandi ng your or your child's healthcare needs (diagnosis, medications, plan, etc.)? No 04/28/2022 Financing Health Concerns Answer Date R ecorded In the last 12 months, was t here a time when your child needed to see a doctor or get medications or supplies but could not because of cost? No 04/28/2022 Missing School or Work Answer Date Alberto rded Did you or your child miss s chool or work because of a health problem that could have been avoided? No 04/28/2022 Comments No Sex and Gender Information Value Date Recorded Sex Assigned at Not on file Legal Sex Female 6:11 PM EDT Gender Identity Not on file Sexual Orientation Straight 10/10/2019 11 :31 AM EST documented as of this encounter Miscellaneous Notes * Telephone Encounter - Sana Angulo NP - 08/08/2022 11:40 AM EDT Rx reviewed, approved, and sent to pharmacy. OSMANYo Nika Buenrostro I sent the hydroxyzine w/ no refills, looks like her last fill on it was Sep 2021 * Telephone Encounter - Melissa Carney MA - 08/08/2022 11:18 AM EDT Refill request for Hydroxyzine and Lexapro Last [facility] 04/28/22 Med check 06/21/22 Upcoming appt 08/25/22 Refilled 07/10/22 Lexapro and 07/20/21 for Hydroxyzine Please review documented in this encounter Plan of Treatment Not on file documented as of this encounter Visit Diagnoses Diagnosis Depression with anxiety Dysthymic disorder documented in this encounter Care Teams Commodity Merchant Relationship Specialty Start Date End Date Eunice Olson MD [address] [facility] [place] [address] PCP - General Pediatrics 03/05/23 10/14/24 documented as of this encounter
--- OUTSIDE RECORDS SUMMARY | 2025-08-27 11:26 | XMS_ITS | Encounter Summary ---
Author Organization [facility] Address [address] [place] [address] Phone Care Team Providers Care Cupola Charger Name Role Phone Eunice Olson MD Primary Care Provider [phone] Reason for Visit * Reason Onset Date Comments Med Refill 09/18/2023 Encounter Details Date Type Department Care Team (Late st Contact Info) Description 09/18/2023 [facility]ill [facility] [address] [address] Eunice Olson MD [address] [place] [address] Acne vulgaris Social History Tobacco Use Types Packs/Day Years [...] as of this encounter Visit Diagnoses Diagnosis Acne vulgaris Other acne documented in this encounter Care Teams Cupola Charger Relationship Specialty Start Date End Date Eunice Olson MD [address] [place] [address] PCP - General Pediatrics 03/05/23 10/14/24 documented as of this encounter
--- OUTSIDE RECORDS SUMMARY | 2025-08-27 11:26 | XMS_ITS | Encounter Summary ---
Author Organization [facility] Address [address] [place] [address] Phone Care Team Providers Care Roll Tube Setter Name Role Phone Eunice Olson MD Primary Care Provider [phone] Encounter Details Date Type Department Care Team (Late st Contact Info) Description 12/20/2009 Documentation [facility] Family Medicine [address] [place] [address] Family Medicine, Physician [address] [place] [address] Social History Tobacco Use Types Packs/Day Years [...] on filedocumented in this encounter Care Teams Roll Tube Setter Relationship Specialty Start Date End Date Eunice Olson MD [address] [place] [address] PCP - General Pediatrics 03/05/23 10/14/24 documented as of this encounter
== END 2025-08-27 10:49 | disposition home or self-care (01) ==
LOC: HO.HMCFM 10:04
PROVIDERS: PCP Physician Assistant Medical; Visit Provider Physician Assistant Medical
DX: F41.9 Anxiety disorder, unspecified (principal); F32.89 Other specified depressive episodes; G25.81 Restless legs syndrome

== ENCOUNTER 2025-11-12 09:49 | Outpatient (AMB) | payer BC, SELFPAY ==
--- NOTE | 2025-11-12 10:00 | MHC.PC.OV ---
Vital Signs 11/12/25 10:03 Height 5 ft 3 in Weight 162 lb BMI 28.7 BP 110/80 Blood Pressure Location Lt brachial Position Sitting Respiration 16 Pulse 80 Pulse Source Pulse Oximeter Temp 98.7 F Temp Source Temporal Artery Scan Pulse Oximetry (%) 98 Oxygen Delivery Method Room Air Intake Visit Reasons: med check Intake Note: Lucille presents in the office today for a medicatin check. Beauty Culturist Required: No Is last menstrual period known: Yes Last menstrual period: 11/04/25 Post menopausal: No Patient : No Allergies Seasonal Allergies Allergy (Verified 11/12/25 10:02) Congestion Tobacco use date assessed: 11/12/25 Dental Screening Dental Screen Date: 11/12/25 Did you have a dental visit in the last 12 months?: Yes Did you have a dental problem in the last 6 months where you did not have access to dental care?: No Was dental information given to patient?: Patient has dentist HPI HPI Comments History of Present Illness Details This is a 20-year-old female with a past medical history of depression with anxiety presenting for follow up. Anxiety and depression-diagnosed 4.5 years ago. She was initially seen by a therapist. Currently on venlafaxine 37.5 mg, decreased at last appointment. Restless leg symptoms resolved after last visit. She got a job in September. 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 She has a prescription for hydroxyzine 10 mg at bedtime as needed, but she has not use this for a long time. Overall she is doing well. She is unsure if it is related to anxiety, but she says that she will intermittently get a discomfort in the middle of her chest. It may only last for a few minutes. She says it is not a pain or tightness, and it is difficult to describe. It is a ?funny feeling. ? She does not associate it with exertion. There is no aggravating or alleviating factors. Does not seem to be related to eating. She denies shortness of breath, dizziness, diaphoresis, syncope. Denies family history of heart disease. She is a nonsmoker. ROS: Constitutional: No unexplained weight loss, fever, chills, fatigue or night sweats. Respiratory: No shortness of breath, cough or sputum production. Cardiovascular: No chest pain, palpitations or pedal edema. Gastrointestinal: No anorexia, nausea, vomiting or diarrhea. No abdominal pain or blood in stool. Genitourinary: No dysuria, hematuria, urinary frequency. Neurologic: No headache, dizziness, syncope, unilateral weakness, ataxia, numbness or tingling in the extremities. Hematologic/Lymphatics: No bleeding or bruising Psychiatric: See HPI Physical exam: Constitutional: Alert, in no distress. Eyes: Pupils are equal, round and reactive to light. Extraocular muscles intact. Neck: Supple, Full range of motion. No lymphadenopathy. No palpable thyroid masses. Respiratory: Clear to auscultation. Cardiovascular: S1 S2 regular. No murmurs. Gastrointestinal: Abdomen soft, non-tender, non-distended. Normal bowel sounds. No palpable masses. Neurologic: No focal neurological deficits Extremities: Warm and well perfused. No clubbing, cyanosis or edema. Intact peripheral pulses bilaterally. Psychiatric: Normal mood and affect [facility] Medical History (Updated 11/12/25 @ 10:21 by SAMIA Bryan) Chest discomfort RLS (restless legs syndrome) Fibula fracture Tibia fracture Routine physical examination Screening for cardiovascular condition Depression Anxiety Surgical History (Updated 06/24/25 @ 15:01 by Oralia Zimmer MA) History of fasciotomy Family History Mother Hypertension FHx: mental illness Anxiety Depression Father Hyperlipemia Maternal Grandmother Lung cancer Alcohol abuse Paternal Grandmother Breast cancer, Onset Age: 70 Paternal Grandfather Substance abuse Social History (Updated 11/12/25 @ 10:03 by Oralia Zimmer CMA) Housing: House Housing Other:: [place] Alcohol intake: current Patient Tobacco Use Status: Never used Tobacco e-Cigarette/Vaping Use: Never Used Second Hand Smoke Exposure: No service: No Current occupational status: employed and student Current occupation: [employer]. Current occupational exposures/hazards: No Cognitive needs: No Hearing needs: No Vision needs: No Female Reproductive History Menstrual Date of last menstrual period: 11/04/25 Questionnaire Thrive Questionnaire Date Thrive assessed: 06/22/25 I am a: Patient What is your living situation today?: I have a steady place to live Within the past 12 months, did the food you bought not last and you didn't have the money to get more?: Never true Within the past 12 months, did you worry whether your food would run out before you got money to buy more?: Never true Do you have trouble paying for medicines?: No Do you have trouble getting transportation to medical appointments?: No Do you have trouble paying your heating and electricity bill?: No Do you have trouble taking care of your child, family member or friend?: No Do you have trouble with day-to-day activities such as bathing, preparing meals, shopping, managing finances, etc.?: No Are you currently unemployed and looking for a job?: No Are you interested in more education?: No Please select the resources that you would like help with: None Currently or been in a relationship where the following occur: No concerns reported THRIVE Score: 0 NAHUN-7 AMB Questionnaire NAHUN-7 Date NAHUN - 7 assessed: 06/22/25 Source: Developed by Drs. Isaias Craven, Donya Tilley, Yong Campbell and colleagues, with an educational erika from [employer]. Physical exam (Primary Care) Vital Signs: Last Vital Signs Temp 98.7 F 11/12/25 10:03 Pulse 80 11/12/25 10:03 Resp 16 11/12/25 10:03 BP 110/80 11/12/25 10:03 Pulse Ox 98 11/12/25 10:03 Oxygen Delivery Method Room Air 11/12/25 10:03 BMI result Body Mass Index 28.7 Tobacco/Smoking Status: Tobacco use Status Tobacco use date assessed 11/12/25 11/12/25 10:07 Patient Tobacco Use Status Never used Tobacco 11/12/25 10:07 e-Cigarette/Vaping Use Never Used 11/12/25 10:07 Thrive Assessment: Date of Thrive Assessment Date Thrive assessed 06/22/25 11/12/25 10:07 Currently or been in a relationship where the following occur: No concerns reported Office Procedures EKG Details: EKG shows normal sinus rhythm, 73 beats per minute 81700-Nvwymzsrusrbujsol, Complete Coding Level of Care Code Est Pt Level 4 (45499) Add On Problem Visit Only Diagnoses Anxiety F41.9 Other depression F32.89 Depression Type: other depression Chest discomfort R07.89 CPT Codes EKG - CPT: 89562-Ezqrqnbwhrztmwkfo, Complete ([id number]) Assessment & Plan Assessment & Plan (1) Anxiety: Code(s): F41.9 - Anxiety disorder, unspecified Category: Medical (2) Depression: Code(s): F32.A - Depression, unspecified Category: Medical Qualifiers: Depression Type: other depression Qualified Code(s): F32.89 - Other specified depressive episodes (3) Chest discomfort: Code(s): R07.89 - Other chest pain Category: Medical Plan She will continue venlafaxine 37.5 mg. Anxiety and depression are stable. She is doing well at her new job. Her EKG today is normal. No exertional symptoms. This is not associated with shortness of breath or dizziness or chest pain. She is young without risk factors for CAD. Do not suspect CAD at this time. PE also not likely given intermittent symptoms, lack of hypoxia or dyspnea. Discussed differential including anxiety, reflux, musculoskeletal etiology. We will check echo to be cautious for structural heart disease. Warning signs warranting ER evaluation reviewed. Orders: Orders AMB EKG-In Office 11/12/25 R07.89 - Other chest pain CA echo transthoracic complete 11/12/25 R07.89 - Other chest pain
[2025-11-12 10:03] VITALS: BP 110/80; PULSE 80; RESP 16; TEMP 37.1; O2SAT 98; BMI 28.7
--- OUTSIDE RECORDS SUMMARY | 2025-11-12 11:55 | XMS_ITS | Clinical Summary ---
Author Organization [facility] Address [address] [place] [address] Phone Care Team Providers Care Tipple Tender Name Role Phone Unavailable Primary Care Provider [...] when she returns in April for her [facility], but can be done sooner if there [...] if she is back in school in [place], in 2 months-sooner if any concerns. Continue [...] a few months at her next scheduled [facility], sooner if any concerns. Assessment & Plan [...] Reviewed AAP guidelines for healthy active living. Immunizations Immunization Administration Dates Next Due DTaP [...] 11/01/2020, 10/10/2019, Additional history exists COVID-19 Vaccine (4 - 2025-26 season) 2025 12/14/2021, 06/12/2021, 05/22/2021 Pneumococcal Vaccine [...] Additional history exists HPV Vaccines Completed 09/16/2015, 02/2014, 08/28/2014 Hepatitis A Vaccines Completed 10/09/2018, 10/03/20 17 Meningococcal Vaccine Completed 10/10/2019, 014 Men B Vaccine Completed 05/28/2023, 04/28/2022 Procedures * Due to [place] [employer] law, this organization might not be sharing sensitive test results. Procedure Name Priority Date/Time Associated Diagnosis Comments CHLAMYDIA AND GONORRHEA, AMPLIFIED Routine 05/28/2023 3:15 PM EDT Encounter for screening examination for sexually transmitted disease from Last 3 Months or Most Recently Relevant to Health Maintenance Results * Due to [facility] law, this organization might not be sharing sensitive test results. * (ABNORMAL) Chlamydia and Gonorrhoea, Amplified (05/28/2023 3:15 PM EDT) Chlamydia Trachomatis, DNA Probe POSITIVE(A) (NEG) [facility] Comment: Chlamydia Trachomatis RNA detected in this patient's sample (REFERENCE RANGE/NORMAL VALUE: NOT DETECTED) Result reported to the [facility]. Note: This test uses global implementation manager- mediated amplification method to detect rRNA from C. Trachomatis URINE GC AMP PROBE NEGATIVE (NEG) [facility] Comment: No Neisseria Gonorrhoeae RNA detected in this patient's sample (REFERENCE RANGE/NORMAL VALUE: NOT DETECTED) NOTE: This test uses global implementation manager-mediated amplification method to detect rRNA from N.Gonorrhoeae. [...] without risk of sexual abuse. Consult the [facility] if needed. Contact phone number . Therapeutic failure or success cannot be determined with the Aptima Combo2 assay since nucleic acid may persist following appropriate antimicrobial therapy. The Centers for Disease Control and Prevention (CDC) recommends confirmatory retesting using culture or a different nucleic acid amplification test when positive results occur, if indicated. Testing performed or reported by [facility], a Service of [facility], [address] [place] [address] Edwin Kyle MD, Crocheter Hand [facility]# [id number] Urine (Urine) 05/28/2023 3:1 5 PM EDT 05/28/2023 7:29 PM EDT us Eunice Olson MD LAB MICROBIOLOGY - GENERAL ORDER SAMANTHA Final Result [facility] from Last 3 Months or Most Recently Relevant to Health Maintenance Insurance [facility] PPO
--- OUTSIDE RECORDS SUMMARY | 2025-11-12 11:55 | XMS_ITS | Encounter Summary ---
Author Organization [facility] Address [address] [place] [address] Phone Care Team Providers Care Induction Coordination Engineer Name Role Phone Eunice Olson MD Primary Care Provider [phone] Reason for Visit * Reason Onset Date Comments Med Refill 08/08/2022 Encounter Details Date Type Department Care Team (Late st Contact Info) Description 08/08/2022 [facility]ill [facility] [address] [address] [address] Stone MD Depression with anxiety Social [...] Refill request for Hydroxyzine and Lexapro Last [facility] 04/28/22 Med check 06/21/22 Upcoming appt 08/25/22 Refilled 07/10/22 Lexapro and 07/20/21 for Hydroxyzine Please review documented in this encounter Plan of Treatment Not on file documented as of this encounter Visit Diagnoses Diagnosis Depression with anxiety Dysthymic disorder documented in this encounter Care Teams Induction Coordination Engineer Relationship Specialty Start Date End Date Eunice Olson MD [address] [facility] [place] [address] PCP - General Pediatrics 03/05/23 10/14/24 documented as of this encounter
--- OUTSIDE RECORDS SUMMARY | 2025-11-12 11:55 | XMS_ITS | Encounter Summary ---
Author Organization [facility] Address [address] [place] [address] Phone Care Team Providers Care Family Service Caseworker Name Role Phone Eunice Olson MD Primary Care Provider [phone] Encounter Details Date Type Department Care Team (Late st Contact Info) Description 12/17/2009 Documentation [facility] Family Medicine [address] [place] [address] Family Medicine, Physician [address] [place] [address] Social History Tobacco Use Types Packs/Day Years [...] on filedocumented in this encounter Care Teams Family Service Caseworker Relationship Specialty Start Date End Date Eunice Olson MD [address] [place] [address] PCP - General Pediatrics 03/05/23 10/14/24 documented as of this encounter
--- OUTSIDE RECORDS SUMMARY | 2025-11-12 11:55 | XMS_ITS | Encounter Summary ---
Author Organization [facility] Address [address] [place] [address] Phone Care Team Providers Care Collections Curator Name Role Phone Eunice Olson MD Primary Care Provider [phone] Reason for Visit * Reason Onset Date Comments Med Refill 09/18/2023 Encounter Details Date Type Department Care Team (Late st Contact Info) Description 09/18/2023 [facility]ill [facility] [address] [address] Eunice Olson MD [address] [place] [address] Acne vulgaris Social History Tobacco Use Types [...] acne documented in this encounter Care Teams Collections Curator Relationship Specialty Start Date End Date Eunice Olson MD [address] [place] [address] PCP - General Pediatrics 03/05/23 10/14/24 documented as of this encounter
--- OUTSIDE RECORDS SUMMARY | 2025-11-12 11:55 | XMS_ITS | Encounter Summary ---
Author Organization [facility] Address [address] [place] [address] Phone Care Team Providers Care Assessment Expert Name Role Phone Unavailable Primary Care Provider Unavailabl e Reason for Visit * Reason Onset Date Comments release of records 07/10/2025 Encounter Details Date Type Department Care Team ([facility] st Contact Info) Description 07/10/2025 Telephone [facility] [address] [address] [address] [address] release of records Social History Tobacco Use [...] records received to be sent out to [facility] Family Medicine [address] [place] [address] Records printed and mailed. Release scanned into media. documented in this encounter Plan of Treatment Not on file documented as of this encounter Visit Diagnoses Not on filedocumented in this encounter
--- OUTSIDE RECORDS SUMMARY | 2025-11-12 11:55 | XMS_ITS | Encounter Summary ---
Author Organization [facility] Address [address] [place] [address] Phone Care Team Providers Care Swine Genetics Researcher Name Role Phone Eunice Olson MD Primary Care Provider [phone] Reason for Visit * Reason Comments Med Refill Encounter Details Date Type Department Care Team (Late st Contact Info) Description 03/29/2021 [facility]ill [facility] [address] [place] [address] Sana Angulo NP [address] [place] [address] Depression with anxiety Social History Tobacco Use [...] disorder documented in this encounter Care Teams Swine Genetics Researcher Relationship Specialty Start Date End Date Eunice Olson MD [address] [place] [address] PCP - General Pediatrics 03/05/23 10/14/24 documented as of this encounter
--- OUTSIDE RECORDS SUMMARY | 2025-11-12 11:55 | XMS_ITS | Encounter Summary ---
Author Organization [facility] Address [address] [place] [address] Phone Care Team Providers Care Biofuels Technology Development Manager Name Role Phone Eunice Olson MD Primary Care Provider [phone] Encounter Details Date Type Department Care Team (Late st Contact Info) Description 12/20/2009 Documentation [facility] Family Medicine [address] [place] [address] Family Medicine, Physician [address] [place] [address] Social History Tobacco Use Types Packs/Day Years [...] on filedocumented in this encounter Care Teams Biofuels Technology Development Manager Relationship Specialty Start Date End Date Eunice Olson MD [address] [place] [address] PCP - General Pediatrics 03/05/23 10/14/24 documented as of this encounter
--- OUTSIDE RECORDS SUMMARY | 2025-11-12 11:55 | XMS_ITS | Encounter Summary ---
Author Organization [facility] Address [address] [place] [address] Phone Care Team Providers Care Starbucks Barista Name Role Phone Eunice Olson MD Primary Care Provider [phone] Encounter Details Date Type Department Care Team (Late st Contact Info) Description 04/14/2018 Conversion [facility]counter [facility] [place] [id number] [place] [address] [address] Stone MD Social History Tobacco Use [...] on filedocumented in this encounter Care Teams Starbucks Barista Relationship Specialty Start Date End Date Eunice Olson MD [address] [place] [address] PCP - General Pediatrics 03/05/23 10/14/24 documented as of this encounter
== END 2025-11-12 10:41 | disposition home or self-care (01) ==
LOC: HO.HMCFM 09:49
PROVIDERS: PCP Physician Assistant Medical; Visit Provider Physician Assistant Medical
DX: R07.89 Other chest pain (principal)

== ENCOUNTER → 2025-11-12 09:49 | Outpatient (BNVA) | payer BC, SELFPAY | PROVIDERS: PCP Physician Assistant Medical; Visit Provider Physician Assistant Medical | DX: R07.89 Other chest pain (principal) | CPT/HCPCS: 93005 ==